=== PATIENT | female | born 1990 | race African-American/Black ===

== ENCOUNTER 2024-11-19 07:13 | Inpatient (IN) | payer MEDICAID, OTHER ==
[~2024-11-19] VITALS: Ht 162.6 cm; Wt 59.0 kg
[2024-11-19 07:15] VITALS: O2SAT 100
[2024-11-19 07:57] LABS: BASOPHILS % 0.7 % (0.0-2.0); EOSINOPHILS % 0.8 % (0.0-5.0); HEMATOCRIT. 41.6 % (36.0-48.0); HEMOGLOBIN. 13.9 g/dL (12.0-16.0); LYMPHOCYTES % 25.3 % (20.0-50.0); MEAN PLATELET VOLUME 7.5 fl (7.4-10.4); MONOCYTES % 3.1 % (2.0-8.0); NEUTROPHILS % 70.1 % (40.0-76.0); PLATELET 354 x1000/uL (130-400); RED BLOOD CELL COUNT 4.35 mill/uL (4.2-5.4); RED CELL DISTRIBUTION WIDTH 13.8 % (11.6-14.6)
[2024-11-19 08:13] LABS: HCG SCREEN NEGATIVE
[2024-11-19 08:17] LABS: CREATININE 0.9 mg/dL (0.6-1.0); UREA NITROGEN BLOOD 7 mg/dL (9-23)
[2024-11-19 08:19] LABS: ASPARTATE AMINOTRANSFERASE 20 IU/L (<34); BILIRUBIN DIRECT 0.2 mg/dL (<=3.0); BILIRUBIN TOTAL 0.5 mg/dL (0.1-1.0)
[2024-11-19 08:20] LABS: PROTEIN TOTAL 7.3 g/dL (6.0-8.3)
[2024-11-19] MEDS: ACETAMINOPHEN 325MG TABLET PO ONE (09:25)
[2024-11-19] MEDS: SODIUM CHLORIDE 0.9% 100 ML IV ONE (09:25)
[2024-11-19] MEDS: ONDANSETRON HCL 4MG/2ML INJ IV ONE (09:25)
[2024-11-19] MEDS: SODIUM CHLORIDE 0.9% 1,000 ML IV ONE (09:48)
[2024-11-19 09:54] LABS: CLARITY URINE CLOUDY (CLEAR); COLOR URINE YELLOW (YELLOW); GLUCOSE URINE NEGATIVE (NEGATIVE); KETONES URINE NEGATIVE (NEGATIVE); LEUKOCYTE ESTERASE URINE NEGATIVE (NEGATIVE); NITRITE URINE NEGATIVE (NEGATIVE); OCCULT BLOOD URINE NEGATIVE (NEGATIVE); PH URINE >=9.0 (4.5-8.0); PROTEIN URINE TRACE (NEGATIVE); SPECIFIC GRAVITY URINE 1.019 (1.005-1.030); UROBILINOGEN URINE 0.2 E.U./dL (0.2-1.0)
[2024-11-19 10:07] LABS: SQUAMOUS EPITHELIAL CELL URINE 2+ /lpf (RARE/1+)
[2024-11-19 10:08] LABS: AMORPHOUS SEDIMENT URINE 2+ /lpf; BACTERIA URINE 2+; RBC URINE 0-2 /hpf (0-2); WBC URINE 0-2 /hpf (0-2)
[2024-11-19 10:18] LABS: *AMPHETAMINES SCREEN URINE NEGATIVE (NEGATIVE); *BARBITURATES SCREEN URINE NEGATIVE (NEGATIVE); *BENZODIAZEPINES SCREEN URINE NEGATIVE (NEGATIVE); *COCAINE SCREEN URINE NEGATIVE (NEGATIVE); CANNABINOID URINE SCREEN PRESUMPTIVE POSITIVE (NEGATIVE); ECSTASY MDMA SCREEN URINE NEGATIVE (NEGATIVE); METHADONE URINE SCREEN NEGATIVE (NEGATIVE); OPIATES URINE SCREEN PRESUMPTIVE POSITIVE (NEGATIVE); PHENCYCLIDINE URINE SCREEN NEGATIVE (NEGATIVE)
[2024-11-19 11:10] VITALS: BP 113/77; PULSE 70; RESP 18; TEMP 36.418
[2024-11-19 12:00] VITALS: BP_SYST 113; BP_SYST 142; BP_DIAS 77; BP_DIAS 91; PULSE 108; PULSE 70; RESP 16; RESP 18; TEMP 36.2; TEMP 36.4; O2SAT 96; O2SAT 98
[2024-11-19] MEDS ORDERED: ACETAMINOPHEN 325MG TABLET PO PRN (12:00)
[2024-11-19] MEDS ORDERED: DOCUSATE SODIUM 100MG CAPSULE PO PRN (12:00)
[2024-11-19] MEDS ORDERED: IPRATROPIUM/ALBUTEROL 0.5-3(2.5)MG/3ML NEB HHN PRN (12:00)
[2024-11-19] MEDS ORDERED: ONDANSETRON HCL 4MG/2ML INJ IV PRN (12:00)
[2024-11-19] MEDS ORDERED: DEXTROSE 50% WATER 50ML SYRINGE IV PRN (12:00)
[2024-11-19] MEDS ORDERED: CLONIDINE 0.1MG TABLET PO PRN (12:00)
[2024-11-19] MEDS: FAMOTIDINE 20MG/2ML VIAL IV SCH (12:36)
[2024-11-19] MEDS: ACETAMINOPHEN 325MG TABLET PO PRN (12:37)
[2024-11-19] MEDS: INSULIN LISPRO 100 UNITS/ML SUBCUT SCH (12:50)
[2024-11-19] MEDS: BLOOD SUGAR DIAGNOSTIC STRIP TEST SCH (12:53)
[2024-11-19] MEDS: ENOXAPARIN 40MG/0.4ML SYR SUBCUT SCH (14:38)
[2024-11-19 16:00] VITALS: BP 97/72; PULSE 79; RESP 18; TEMP 36.3; O2SAT 97
[2024-11-19 16:53] LABS: ETHANOL BLOOD < 10 mg/dL (<10)
[2024-11-19 20:00] VITALS: BP 98/46; PULSE 65; RESP 20; TEMP 36.4; O2SAT 99
[2024-11-19] MEDS: LEVETIRACETAM 500MG PREMIX 100 ML IV SCH (21:55)
[2024-11-20] VITALS: BP 102/45; PULSE 52; RESP 19; TEMP 36.3; O2SAT 100
[2024-11-20 04:00] VITALS: BP 106/68; PULSE 79; RESP 18; TEMP 36.9; O2SAT 99
[2024-11-20 08:54] VITALS: BP 101/55; PULSE 70; RESP 17; TEMP 36.3; O2SAT 96
[2024-11-20 12:00] VITALS: BP 106/70; PULSE 54; RESP 17; TEMP 36.4; O2SAT 98
[2024-11-20] MEDS ORDERED: KEPP500 MT (14:43)
[2024-11-20 16:00] VITALS: BP 101/65; PULSE 66; RESP 18; TEMP 36.5; O2SAT 100
[2024-11-20 17:38] VITALS: BP 109/65; PULSE 66; RESP 16; TEMP 36.2; O2SAT 97
== END 2024-11-20 17:00 | disposition home or self-care (01) | DRG 53 ==
LOC: ER 07:13 → 6WST 09:10 → EDBEDREQ 09:15 → EDBEDREQTM 09:15 → ENRESERV 10:46
PROVIDERS: ADMIT Internal Medicine; ATTEND Internal Medicine
DX: R56.9 Unspecified convulsions (principal); M62.82 Rhabdomyolysis; F12.90 Cannabis use, unspecified, uncomplicated; G43.909 Migraine, unspecified, not intractable, without status migrainosus; M54.9 Dorsalgia, unspecified
CPT/HCPCS: 36415; 70551; 80048; 80076; 80305; 80320; 81003; 82550; 82962; 83036; 83735; 84703; 85025; 93005; 99285; J1308; J1650; J1953; J2405; G0480

== ENCOUNTER 2025-03-01 06:26 | Inpatient (IN) | payer MEDICAID, OTHER ==
[~2025-03-01] VITALS: Ht 167.6 cm; Wt 65.3 kg
[~2025-03-01 06:26] MED LIST: KEPP500 MT
[2025-03-01 06:29] VITALS: O2SAT 99
[2025-03-01 07:21] LABS: BASOPHILS % 0.8 % (0.0-2.0); EOSINOPHILS % 0.7 % (0.0-5.0); HEMATOCRIT. 42.7 % (36.0-48.0); HEMOGLOBIN. 13.7 g/dL (12.0-16.0); LYMPHOCYTES % 45.5 % (20.0-50.0); MEAN PLATELET VOLUME 8.7 fl (7.4-10.4); MONOCYTES % 5.9 % (2.0-8.0); NEUTROPHILS % 47.1 % (40.0-76.0); PLATELET 363 x1000/uL (130-400); RED BLOOD CELL COUNT 4.30 mill/uL (4.2-5.4); RED CELL DISTRIBUTION WIDTH 13.6 % (11.6-14.6)
[2025-03-01] MEDS: OLANZAPINE 10 MG/VIAL IM ONE (07:21)
[2025-03-01] MEDS: LORAZEPAM 2MG/ML UD SYRINGE IM SCH (07:22)
[2025-03-01 07:41] LABS: CREATININE 0.9 mg/dL (0.6-1.0)
[2025-03-01 07:42] LABS: UREA NITROGEN BLOOD 9 mg/dL (9-23)
[2025-03-01 08:23] LABS: CARBAMAZEPINE < 0.4 ug/mL (4-12); PHENOBARBITAL < 3.0 ug/mL (15.0-40.0); VALPROIC ACID < 3.0 ug/mL (50-100)
[2025-03-01] MEDS ORDERED: ONDANSETRON HCL 4MG/2ML INJ IV PRN (09:45)
[2025-03-01] MEDS ORDERED: DEXTROSE 50% WATER 50ML SYRINGE IV PRN (09:45)
[2025-03-01] MEDS ORDERED: IPRATROPIUM/ALBUTEROL 0.5-3(2.5)MG/3ML NEB HHN PRN (09:45)
[2025-03-01] MEDS ORDERED: ACETAMINOPHEN 325MG TABLET PO PRN ×2 (09:45)
[2025-03-01] MEDS ORDERED: LEVETIRACETAM 1,000MG in NACL 100ML PREMIX IV SCH (09:45)
[2025-03-01] MEDS ORDERED: LORAZEPAM 2MG/ML UD SYRINGE IV PRN (10:00)
[2025-03-01] MEDS: POTASSIUM CHLORIDE 20MEQ TABLET SR PO NR (10:24)
[2025-03-01] MEDS: PANTOPRAZOLE SODIUM 40 MG/VIAL IV SCH (10:24)
[2025-03-01] MEDS: SODIUM CHLORIDE 0.45% 250 ML IV ONE (10:24)
[2025-03-01] MEDS: LEVETIRACETAM 1000MG PREMIX 100 ML IV SCH (10:24)
[2025-03-01 10:58] LABS: PHOSPHORUS 1.4 mg/dL (2.5-4.9)
[2025-03-01 12:52] VITALS: BP 90/52; PULSE 73; RESP 20; TEMP 37.0296
[2025-03-01] MEDS: BLOOD SUGAR DIAGNOSTIC STRIP TEST SCH (13:45)
[2025-03-01 14:50] LABS: HEPATITIS C AB NON REACTIVE (Neg) (Negative)
[2025-03-01] MEDS: SODIUM CHLORIDE 0.45% 1,000 ML IV SCH (14:51)
[2025-03-01] MEDS: SODIUM CHLORIDE 0.9% 500 ML IV ONE (14:52)
[2025-03-01] MEDS: POTASSIUM PHOSPHATE 30 MMOL in DEXT 5% WATER 490 ML IV NR (14:52)
[2025-03-01 16:00] VITALS: BP 101/65; PULSE 64; RESP 20; TEMP 37; O2SAT 97
[2025-03-01 20:00] VITALS: BP 116/59; PULSE 68; RESP 18; TEMP 36.9; O2SAT 98
[2025-03-01 20:12] LABS: BG BASE EXCESS -2.4 mmol/L (-2.0-3.0); BG CARBOXYHEMOGLOBIN 0.3 % (0.5-1.5); BG DEOXYHEMOGLOBIN 3.1 % (0.0-5.0); BG HCO3 ACT 21.2 mmol/L (21.0-28.0); BG METHEMOGLOBIN 0.3 % (0.5-1.5); BG OXYGEN SATURATION 96.9 % (94.0-98.0); BG OXYHEMOGLOBIN 96.3 % (94.0-98.0); BG PCO2 33.3 mmHg (32.0-45.0); BG PH 7.422 (7.350-7.450); BG PO2 85.0 mmHg (83.0-108.0); BG SAMPLE SITE RIGHT RADIAL; BG TOTAL HEMOGLOBIN 13.4 g/dL (12.0-16.0); BG VENT MODE ROOM AIR
[2025-03-01] MEDS ORDERED: LEVETIRACETAM 500MG in NACL 100ML PREMIX IV SCH (21:00)
[2025-03-01] MEDS: SODIUM BICARBONATE 8.4% 50MEQ/50ML SYR IV NR (21:48)
[2025-03-01] MEDS: LEVETIRACETAM 500MG PREMIX 100 ML IV SCH (21:49)
[2025-03-01 22:42] LABS: CREATININE 0.7 mg/dL (0.6-1.0)
[2025-03-01 22:43] LABS: UREA NITROGEN BLOOD 6 mg/dL (9-23)
[2025-03-02] VITALS: BP 126/62; PULSE 72; RESP 18; TEMP 37; O2SAT 98
[2025-03-02 04:00] VITALS: BP 118/65; PULSE 68; RESP 18; TEMP 36.8; O2SAT 98
[2025-03-02 08:00] VITALS: BP 95/60; PULSE 71; RESP 20; TEMP 36.4; O2SAT 96
[2025-03-02 11:05] LABS: BASOPHILS % 0.9 % (0.0-2.0); EOSINOPHILS % 0.2 % (0.0-5.0); HEMATOCRIT. 35.9 % (36.0-48.0); HEMOGLOBIN. 12.2 g/dL (12.0-16.0); LYMPHOCYTES % 29.1 % (20.0-50.0); MEAN PLATELET VOLUME 8.6 fl (7.4-10.4); MONOCYTES % 6.0 % (2.0-8.0); NEUTROPHILS % 63.8 % (40.0-76.0); PLATELET 280 x1000/uL (130-400); RED BLOOD CELL COUNT 3.80 mill/uL (4.2-5.4); RED CELL DISTRIBUTION WIDTH 13.0 % (11.6-14.6)
[2025-03-02 11:19] LABS: CREATININE 0.7 mg/dL (0.6-1.0)
[2025-03-02 11:20] LABS: UREA NITROGEN BLOOD 8 mg/dL (9-23)
[2025-03-02 11:22] LABS: PHOSPHORUS 2.4 mg/dL (2.5-4.9)
[2025-03-02 11:24] LABS: ASPARTATE AMINOTRANSFERASE 21 IU/L (<34)
[2025-03-02 11:25] LABS: BILIRUBIN DIRECT 0.2 mg/dL (<=3.0); BILIRUBIN TOTAL 0.7 mg/dL (0.1-1.0); PROTEIN TOTAL 5.9 g/dL (6.0-8.3)
[2025-03-02 12:00] VITALS: BP 105/62; PULSE 78; RESP 18; TEMP 36.8; O2SAT 97
[2025-03-02] MEDS ORDERED: SODIUM CHLORIDE 0.9% 1,000 ML IV SCH (15:00)
[2025-03-02 16:00] VITALS: BP 108/62; PULSE 62; RESP 20; TEMP 37; O2SAT 98
[2025-03-02 17:35] LABS: GLUCOSE URINE NEGATIVE (NEGATIVE); KETONES URINE NEGATIVE (NEGATIVE); LEUKOCYTE ESTERASE URINE NEGATIVE (NEGATIVE); NITRITE URINE NEGATIVE (NEGATIVE); OCCULT BLOOD URINE NEGATIVE (NEGATIVE); PH URINE 7.5 (4.5-8.0); PROTEIN URINE NEGATIVE (NEGATIVE); SPECIFIC GRAVITY URINE 1.021 (1.005-1.030); UROBILINOGEN URINE 1.0 E.U./dL (0.2-1.0)
[2025-03-02 17:39] LABS: *AMPHETAMINES SCREEN URINE NEGATIVE (NEGATIVE)
[2025-03-02 17:40] LABS: *BARBITURATES SCREEN URINE NEGATIVE (NEGATIVE); *BENZODIAZEPINES SCREEN URINE NEGATIVE (NEGATIVE); *COCAINE SCREEN URINE NEGATIVE (NEGATIVE); CANNABINOID URINE SCREEN PRESUMPTIVE POSITIVE (NEGATIVE); ECSTASY MDMA SCREEN URINE NEGATIVE (NEGATIVE); METHADONE URINE SCREEN NEGATIVE (NEGATIVE); OPIATES URINE SCREEN NEGATIVE (NEGATIVE); PHENCYCLIDINE URINE SCREEN NEGATIVE (NEGATIVE)
[2025-03-02 18:01] LABS: COLOR URINE YELLOW (YELLOW)
[2025-03-02 18:02] LABS: RBC URINE NONE SEEN /hpf (0-2); SQUAMOUS EPITHELIAL CELL URINE 2+ /lpf (RARE/1+); WBC URINE 0-2 /hpf (0-2)
[2025-03-02 18:03] LABS: BACTERIA URINE TRACE; CLARITY URINE HAZY (CLEAR); MUCUS URINE TRACE /lpf (< = 2+)
[2025-03-02 20:00] VITALS: BP 116/62; PULSE 68; RESP 18; TEMP 36.9; O2SAT 98
[2025-03-03] VITALS: BP 126/58; PULSE 72; RESP 18; TEMP 36.8; O2SAT 96
[2025-03-03 04:00] VITALS: BP 114/64; PULSE 70; RESP 18; TEMP 36.8; O2SAT 98
[2025-03-03 06:49] LABS: PLATELET 264 x1000/uL (130-400); RED BLOOD CELL COUNT 3.85 mill/uL (4.2-5.4); RED CELL DISTRIBUTION WIDTH 13.0 % (11.6-14.6)
[2025-03-03 06:51] LABS: CREATININE 0.7 mg/dL (0.6-1.0)
[2025-03-03 06:52] LABS: UREA NITROGEN BLOOD 8 mg/dL (9-23)
[2025-03-03 06:54] LABS: PHOSPHORUS 3.1 mg/dL (2.5-4.9)
[2025-03-03 08:00] VITALS: BP 121/75; PULSE 76; RESP 20; TEMP 36.1; O2SAT 96
[2025-03-03] MEDS ORDERED: KEPP500 MT (11:11)
[2025-03-03 11:37] VITALS: BP 122/78; PULSE 58; RESP 18; TEMP 97.8
[2025-03-03 12:00] VITALS: BP 117/68; PULSE 81; RESP 18; TEMP 36.4; O2SAT 97
== END 2025-03-03 13:30 | disposition home or self-care (01) | DRG 53 ==
LOC: ER 06:26 → 8WST 09:29 → EDBEDREQ 09:30 → EDBEDREQTM 09:30 → ENRESERV 12:13
PROVIDERS: ADMIT Student in an Organized Health Care Education/Training Program; ATTEND Student in an Organized Health Care Education/Training Program
DX: G40.909 Epilepsy, unspecified, not intractable, without status epilepticus (principal); E72.20 Disorder of urea cycle metabolism, unspecified; E87.20 Acidosis, unspecified; E83.39 Other disorders of phosphorus metabolism; E87.6 Hypokalemia; E83.51 Hypocalcemia; Z78.1 Physical restraint status; Z91.148 Patient's other noncompliance with medication regimen for other reason; Z79.899 Other long term (current) drug therapy
CPT/HCPCS: 36415; 36600; 76700; 80048; 80076; 80156; 80165; 80184; 80305; 80320; 81003; 82140; 82375; 82542; 82550; 82805; 82962; 83036; 83605; 83735; 83930; 84100; 85025; 85027; 86705; 87340; 93005; 93970; 99285; A4606; J1953; J2060; J2470; J3490; J7060; G0480